=== PATIENT | female | born 1950 | race Caucasian/White ===

== ENCOUNTER 2016-09-19 11:47 | Emergency (ER) | payer BC, MEDICARE ==
[2016-09-19 13:08] VITALS: BP 144/72
--- NOTE | 2016-09-19 13:35 | UC ---
Upper Extremity HPI - HPI Summary HPI Summary: right shoulder pain after a fall last pm at home. States she got dizzy from feeling ill. Did not hit her head. No LOC. No neck pain. States she used a lidocaine patch and took tramadol prior to coming, that she takes for chronic low back pain. States she has had a fusion of C6-T2. - History of Current Complaint Chief Complaint: UCUpperExtremity Stated Complaint: SHOULDER INJURY Time Seen by Provider: 09/19/16 13:35 Hx Obtained From: Patient Hx Last Menstrual Period: n/a Onset/Duration: Sudden Onset, Lasting Hours, Still Present Severity Initially: Moderate Severity Currently: Moderate Pain Intensity: 9 Pain Scale Used: 0-10 Numeric Location Of Pain: Is Discrete @ - right shoulder, clavicle, scapula Character: Sharp Aggravating Factor(s): Movement Alleviating Factor(s): Nothing Associated Signs And Symptoms: Positive: Negative. Negative: Bruising, Numbness /Tingling Related History: Dominant Hand Right - Risk Factors Non-Orthopedic Risk Factor: Negative DVT Risk Factors: Negative Septic Arthritis Risk Factor: Negative - Allergies/Home Medications Allergies/Adverse Reactions: Allergies Allergy/AdvReac Type Severity Reaction Status Date / Time Morphine Allergy Rash Verified 09/19/16 13:01 Propoxyphene Allergy Tachycardia Verified 09/19/16 13:01 [From Darvocet-N] Hydrocodone AdvReac See Comment Verified 09/19/16 13:01 Rosiglitazone [From Avandia] AdvReac Diarrhea Verified 09/19/16 13:01 PMH/Surg Hx/FS Hx/Imm Hx Previously Healthy: No - osteoporosis Endocrine History Of: Reports: Diabetes Denies: Thyroid Disease Cardiovascular History Of: Denies: Cardiac Disorders, Hypertension Respiratory History Of: Denies: COPD, Asthma GI/ History Of: Denies: Ulcer - Surgical History Surgical History: Yes Surgery Procedure, Year, and Place: b/l knee replacements 1 each, hysterectomy, spinal fusion x 4, left ankle; gastric bypass 2011,. C-2 to T-2 fusion--2016, left shoulder sx--2016. - Family History Known Family History: Positive: Hypertension - Social History Alcohol Use: None Substance Use Type: None Smoking Status (MU): Former Smoker Type: Cigarettes Amount Used/How Often: 1 PPD Length of Time of Smoking/Using Tobacco: On and Off 40 Years Have You Smoked in the Last Year: No When Did the Patient Quit Smoking/Using Tobacco: ~2002 - Immunization History Most Recent Influenza Vaccination: 2016 Review of Systems Constitutional: Negative Skin: Negative Eyes: Negative ENT: Negative Respiratory: Negative Cardiovascular: Negative Gastrointestinal: Negative Genitourinary: Negative Motor: Negative Neurovascular: Negative Musculoskeletal: Arthralgia Neurological: Negative Psychological: Negative All Other Systems Reviewed And Are Negative: Yes Physical Exam Triage Information Reviewed: Yes Appearance: Well-Appearing, Pain Distress, Thin Vital Signs: Initial Vital Signs Temp 98 F 09/19/16 13:03 Pulse 87 09/19/16 13:03 Resp 20 09/19/16 13:03 BP 144/72 09/19/16 13:03 Pulse Ox 100 09/19/16 13:03 Vital Signs Reviewed: Yes Eyes: Positive: Conjunctiva Clear ENT: Positive: Normal ENT inspection Dental Exam: Normal Neck: Positive: Supple, Nontender Respiratory: Positive: Chest non-tender, Lungs clear, Normal breath sounds, No respiratory distress Cardiovascular: Positive: RRR, No Murmur, Pulses Normal, Brisk Capillary Refill Musculoskeletal: Positive: Strength Intact, ROM Limited @ - right shoulder, pain on palpation right interscapular area, upper thoracic spine. Axillary nerve intact. Tender AC joint Neurological: Positive: Alert, Muscle Tone Normal Psychological Exam: Normal Skin Exam: Normal Upper Extremity Course/Dx - Course Course Of Treatment: xrays thoracic spine, scapula and right shoulder all neg for fx - Differential Dx/Diagnosis Provider Diagnoses: right shoulder strain s/p fall. osteopenia Discharge - Discharge Plan Condition: Stable Disposition: HOME Patient Education Materials: Shoulder Sprain (ED) Referrals: Jena Jama MD [Primary Care Provider] -
--- NOTE | 2016-09-19 14:09 | RAD ---
Indication: Right shoulder injury. 3 views of the right shoulder demonstrates AC joint arthritis. Degenerative changes of the right glenohumeral joint is noted. No fracture is identified. IMPRESSION: AC JOINT ARTHRITIS WITH NO EVIDENCE OF FRACTURE.
--- NOTE | 2016-09-19 14:12 | RAD ---
HISTORY: Fall, pain, shoulder pain COMPARISONS: None VIEWS: 2, frontal internal rotation and outlet views of the right shoulder FINDINGS: BONE DENSITY: Normal. BONES: There is no displaced fracture. JOINTS: There is no arthropathy. ALIGNMENT: There is no dislocation. SOFT TISSUES: Unremarkable. OTHER FINDINGS: None. IMPRESSION: NO ACUTE OSSEOUS INJURY. IF SYMPTOMS PERSIST, RECOMMEND REPEAT IMAGING.
--- NOTE | 2016-09-19 14:26 | RAD ---
Indication: Back pain after fall. 2 views of the thoracic spine are reviewed. There is normal vertebral body height and alignment. Diffuse osteopenia is noted. Disc spaces all well-preserved. IMPRESSION: Diffuse osteopenia without fracture of the thoracic spine.
== END 2016-09-19 15:26 | disposition home or self-care (01) ==
LOC: UCCORT 11:47
DX: S46.911A Strain of unspecified muscle, fascia and tendon at shoulder and upper arm level, right arm, initial encounter (principal); M85.88 Other specified disorders of bone density and structure, other site; M19.011 Primary osteoarthritis, right shoulder; Z96.653 Presence of artificial knee joint, bilateral; Z98.84 Bariatric surgery status; Z87.891 Personal history of nicotine dependence; W19.XXXA Unspecified fall, initial encounter; Y92.9 Unspecified place or not applicable; Z88.5 Allergy status to narcotic agent; Z88.8 Allergy status to other drugs, medicaments and biological substances
CPT/HCPCS: 72070; 99212; G0463

== ENCOUNTER 2017-04-14 11:23 | Emergency (ER) | payer BC, MEDICARE ==
[2017-04-14 12:32] VITALS: BP 122/56
--- NOTE | 2017-04-14 13:02 | UC ---
Respiratory Complaint HPI - HPI Summary HPI Summary: pt c/o of "burning in chest" with respirations. pt reports she had a URI last week that now has "traveled to her lungs" . Pt c/o SOB with ambulation. - History of Current Complaint Chief Complaint: UCGeneralIllness Stated Complaint: CHEST CONGESTION, COUGH Time Seen by Provider: 04/14/17 12:14 Hx Obtained From: Patient Hx Last Menstrual Period: n/a ?: No Onset/Duration: Gradual Onset, Lasting Days Severity Initially: Mild Severity Currently: Mild Character: Cough: Nonproductive Aggravating Factors: Deep Breaths Alleviating Factors: Spontaneous Resolution Associated Signs And Symptoms: Positive: Dyspnea, URI - Risk Factors Pulmonary Embolism Risk Factors: Negative Cardiac Risk Factors: Negative Pseudomonas Risk Factors: Negative Tuberculosis Risk Factors: Negative - Allergies/Home Medications Allergies/Adverse Reactions: Allergies Allergy/AdvReac Type Severity Reaction Status Date / Time Morphine Allergy Rash Verified 09/19/16 13:01 Propoxyphene Allergy Tachycardia Verified 09/19/16 13:01 [From Darvocet-N] Hydrocodone AdvReac See Comment Verified 09/19/16 13:01 Rosiglitazone [From Avandia] AdvReac Diarrhea Verified 09/19/16 13:01 Home Medications: Home Medications Albuterol Sulfate [Proventil Hfa] 108 mcg IN Q4HR PRN 04/14/17 [History Confirmed 04/14/17] PMH/Surg Hx/FS Hx/Imm Hx Previously Healthy: Yes - Surgical History Surgical History: Yes Surgery Procedure, Year, and Place: b/l knee replacements 1 each, hysterectomy, spinal fusion x 4, left ankle; gastric bypass 2011,. C-2 to T-2 fusion--2016, left shoulder sx--2016., lumbar fusion this past december - Family History Known Family History: Positive: Hypertension - Social History Occupation: Retired Lives: With Family Alcohol Use: None Substance Use Type: None Smoking Status (MU): Former Smoker Type: Cigarettes Amount Used/How Often: 1 PPD Length of Time of Smoking/Using Tobacco: On and Off 40 Years Have You Smoked in the Last Year: No When Did the Patient Quit Smoking/Using Tobacco: ~2002 - Immunization History Most Recent Influenza Vaccination: 2016 Review of Systems Constitutional: Negative Skin: Negative Eyes: Negative ENT: Negative Respiratory: Shortness Of Breath - with ambulation Cardiovascular: Negative Gastrointestinal: Negative Genitourinary: Negative Motor: Negative Neurovascular: Negative Musculoskeletal: Negative Neurological: Negative Psychological: Negative All Other Systems Reviewed And Are Negative: Yes Physical Exam Triage Information Reviewed: Yes Appearance: Well-Appearing Vital Signs: Initial Vital Signs Temp 97.7 F 04/14/17 12:26 Pulse 89 04/14/17 12:26 Resp 16 04/14/17 12:26 BP 122/56 04/14/17 12:26 Pulse Ox 99 04/14/17 12:26 Vital Signs Reviewed: Yes Eye Exam: Normal ENT Exam: Normal Dental Exam: Normal Neck exam: Normal Respiratory Exam: Normal Cardiovascular Exam: Normal Musculoskeletal Exam: Normal Neurological Exam: Normal Psychological Exam: Normal Skin Exam: Normal UC Diagnostic Evaluation - Laboratory O2 Sat by Pulse Oximetry: 99 Respiratory Course/Dx - Differential Dx/Diagnosis Differential Diagnosis/HQI/PQRI: Bronchitis, Other - post viral cough Provider Diagnoses: post viral cough Discharge - Discharge Plan Condition: Stable Disposition: HOME Prescriptions: methylPREDNISolone TAB* [Medrol TAB*] 4 - 8 mg PO .SEE CELESTE #1 celeste Patient Education Materials: Dyspnea (ED) Referrals: Jena Jama MD [Primary Care Provider] - If Needed (Please follow up with your PCP or return to clinic as needed. ) Additional Instructions: Please follow up with your PCP or return to clinic. Please use the albuterol inhaler you were prescribed by another provider as directed.
== END 2017-04-14 12:50 | disposition home or self-care (01) ==
LOC: UCCORT 11:23
DX: R05 Cough (principal)
CPT/HCPCS: 99211; G0463

== ENCOUNTER 2017-05-14 18:40 | Emergency (ER) | payer BC, MEDICARE ==
[2017-05-14 20:05] VITALS: BP 131/55
--- NOTE | 2017-05-14 20:11 | UC ---
Abdominal Pain Female HPI - HPI Summary HPI Summary: Patient presents to the with CC - History of Current Complaint Hx Last Menstrual Period: n/a <Maeve Khan - Last Filed: 05/14/17 20:11> - HPI Summary HPI Summary: Dysuria and diarrhea for about 5 days. she did have nausea at one point but this has resolved. no fever. she has had dysuria but no fever or back pain. no other contacts have diarrhea. no recent hospitalization or recent antibiotics. - History of Current Complaint Hx Obtained From: Patient, Family/Floral Manager ?: No Onset/Duration: Gradual Onset, Lasting Days Timing: Constant Severity Initially: Moderate Severity Currently: Moderate Location: Diffuse Radiates: No Character: Aching, Cramping Aggravating Factor(s): Other: - urination. Alleviating Factor(s): Nothing Associated Signs and Symptoms: Positive: Urinary Symptoms, Diarrhea - she denies vaginal burning or itching or swelling., Other:. Negative: Diaphoresis, Fever, Cough, Chest Pain, Back Pain, Constipation, Blood in Stool, Decreased Appetite, Vaginal Bleeding <Sumanth Lundberg - Last Filed: 05/14/17 20:35> - History of Current Complaint Chief Complaint: UCGU Stated Complaint: UTI Time Seen by Provider: 05/14/17 19:50 Allergies/Adverse Reactions: Allergies Allergy/AdvReac Type Severity Reaction Status Date / Time Morphine Allergy Rash Verified 05/14/17 19:57 Propoxyphene Allergy Tachycardia Verified 05/14/17 19:57 [From Darvocet-N] Hydrocodone AdvReac See Comment Verified 05/14/17 19:57 Rosiglitazone [From Avandia] AdvReac Diarrhea Verified 05/14/17 19:57 Home Medications: Home Medications Cyanocobalamin [B-12 Compliance Injection] 05/14/17 [History] oxyCODONE/Acetamin (NF) [Percocet (NF)] 1 tab PO Q4H 05/14/17 [ History Confirmed 05/14/17] PMH/Surg Hx/FS Hx/Imm Hx - Surgical History Surgical History: Yes Surgery Procedure, Year, and Place: b/l knee replacements 1 each, hysterectomy, spinal fusion x 4, left ankle; gastric bypass 2011,. C-2 to T-2 fusion--2016, left shoulder sx--2016., lumbar fusion this past december - Family History Known Family History: Positive: Hypertension - Social History Alcohol Use: None Substance Use Type: None Smoking Status (MU): Former Smoker Type: Cigarettes Amount Used/How Often: 1 PPD Length of Time of Smoking/Using Tobacco: On and Off 40 Years Have You Smoked in the Last Year: No When Did the Patient Quit Smoking/Using Tobacco: ~2002 - Immunization History Most Recent Influenza Vaccination: 2015 <Maeve Khan - Last Filed: 05/14/17 20:11> Previously Healthy: No - back pain - Social History Lives: With Family <Sumanth Lundberg - Last Filed: 05/14/17 20:35> Review of Systems Gastrointestinal: Diarrhea Genitourinary: Dysuria All Other Systems Reviewed And Are Negative: Yes <Sumanth Lundberg - Last Filed: 05/14/17 20:35> Physical Exam Vital Signs: Initial Vital Signs Temp 98.4 F 05/14/17 19:59 Pulse 98 05/14/17 19:59 Resp 18 05/14/17 19:59 BP 131/55 05/14/17 19:59 Pulse Ox 98 05/14/17 19:59 <Maeve Khan - Last Filed: 05/14/17 20:11> Triage Information Reviewed: Yes Appearance: Well-Appearing, No Pain Distress, Well-Nourished Vital Signs: Initial Vital Signs Temp 98.4 F 05/14/17 19:59 Pulse 98 05/14/17 19:59 Resp 18 05/14/17 19:59 BP 131/55 05/14/17 19:59 Pulse Ox 98 05/14/17 19:59 Vital Signs Reviewed: Yes Eyes: Positive: Conjunctiva Clear ENT: Positive: Normal ENT inspection, Pharynx normal Neck: Positive: Supple, Nontender, No Lymphadenopathy Respiratory Exam: Normal Respiratory: Positive: Chest non-tender, Lungs clear, Normal breath sounds, No respiratory distress, No accessory muscle use. Negative: Respiratory distress Cardiovascular: Positive: RRR, No Murmur, Pulses Normal, Brisk Capillary Refill Abdominal Exam: Other - diffuse tenderness without guarding. Abdomen Description: Negative: CVA Tenderness (R), CVA Tenderness (L) Musculoskeletal: Positive: Strength Intact, ROM Intact, No Edema Neurological: Positive: Alert, Muscle Tone Normal. Negative: Fatigued Psychological: Positive: Normal Response To Family, Age Appropriate Behavior Skin: Negative: rashes <Sumanth Lundberg - Last Filed: 05/14/17 20:35> Abd Pain Female Course/Dx - Course Course Of Treatment: we discussed supportive care and she will return for any worsening symptoms of any kind or if diarrhea persists. - Differential Dx/Diagnosis Provider Diagnoses: diarrhea. uti <Sumanth Lundberg - Last Filed: 05/14/17 20:35> Discharge <Maeve Khan - Last Filed: 05/14/17 20:11> <Sumanth Lundberg - Last Filed: 05/14/17 20:35> - Discharge Plan Condition: Good Disposition: HOME Prescriptions: Loperamide CAP* [Imodium CAP*] 2 mg PO Q4H PRN #20 cap PRN Reason: Diarrhea Nitrofurantoin Monohyd Macro [Macrobid] 100 mg PO BID #20 cap Patient Education Materials: Acute Diarrhea (ED), Loperamide (By mouth), Urinary Tract Infection in Women (ED) Referrals: Jena Jama MD [Primary Care Provider] - If Needed Additional Instructions: Please come back if symptoms persist including diarrhea.
[2017-05-14] MEDS ORDERED: Nitrofurantoin Macrocrystals* 50 MG CAP PO ONE (20:37)
== END 2017-05-14 20:41 | disposition home or self-care (01) ==
LOC: UCCORT 18:40
DX: N39.0 Urinary tract infection, site not specified (principal); Z88.5 Allergy status to narcotic agent; Z88.6 Allergy status to analgesic agent; Z88.8 Allergy status to other drugs, medicaments and biological substances; Z98.1 Arthrodesis status; Z96.653 Presence of artificial knee joint, bilateral; Z98.84 Bariatric surgery status; Z87.891 Personal history of nicotine dependence
CPT/HCPCS: 81003; 87086; 99212; A9270-GY; G0463

== ENCOUNTER 2017-05-23 16:17 | Emergency (ER) | payer BC, MEDICARE ==
[2017-05-23 17:10] VITALS: BP 138/65
--- NOTE | 2017-05-23 17:14 | UC ---
Complaint Female HPI - HPI Summary HPI Summary: SEEN 05/14/17, DIAGNOSED WITH UTI PRESCRIBED MACROBID. FELT BETTER FOR A COUPL EOF DAYS BUT NOW CHILLS, FREQUENCY, URGENCY, AND LOW BACK PAIN HAVE WORSENED. - History Of Current Complaint Chief Complaint: UCGU Stated Complaint: UTI - NOT IMPROVING Time Seen by Provider: 05/23/17 16:47 Hx Obtained From: Patient Hx Last Menstrual Period: n/a Onset/Duration: Sudden Onset, Lasting Days, Still Present Timing: Intermittent, Lasting Days Severity Initially: Mild Severity Currently: Moderate Character: Dull, Burning, Cramping Aggravating Factor(s): Urination Associated Signs And Symptoms: Positive: Back Pain. Negative: Vaginal Bleeding/ Discharge, Vaginal Discharge, Nausea, Vomiting(# Of Episodes =) - Risk Factors Ectopic Risk Factor: Negative Ovarian Torsion Risk Factor: Negative - Allergies/Home Medications Allergies/Adverse Reactions: Allergies Allergy/AdvReac Type Severity Reaction Status Date / Time Morphine Allergy Rash Verified 05/23/17 16:34 Propoxyphene Allergy Tachycardia Verified 05/23/17 16:34 [From Darvocet-N] Hydrocodone AdvReac See Comment Verified 05/23/17 16:34 Rosiglitazone [From Avandia] AdvReac Diarrhea Verified 05/23/17 16:34 PMH/Surg Hx/FS Hx/Imm Hx Previously Healthy: Yes - Surgical History Surgical History: Yes Surgery Procedure, Year, and Place: b/l knee replacements 1 each, hysterectomy, spinal fusion x 4, left ankle; gastric bypass 2011,. C-2 to T-2 fusion--2015, left shoulder sx--2016., lumbar fusion this past december - Family History Known Family History: Positive: Hypertension - Social History Occupation: Employed Full-time Lives: With Family Alcohol Use: None Substance Use Type: None Smoking Status (MU): Former Smoker Type: Cigarettes Amount Used/How Often: 1 PPD Length of Time of Smoking/Using Tobacco: On and Off 40 Years Have You Smoked in the Last Year: No When Did the Patient Quit Smoking/Using Tobacco: ~2002 - Immunization History Most Recent Influenza Vaccination: 2016 Review of Systems Constitutional: Chills Skin: Negative Eyes: Negative ENT: Negative Respiratory: Negative Cardiovascular: Negative Gastrointestinal: Negative Genitourinary: Dysuria Motor: Negative Neurovascular: Negative Musculoskeletal: Negative Neurological: Negative Psychological: Negative Is Patient Immunocompromised?: No All Other Systems Reviewed And Are Negative: Yes Physical Exam Triage Information Reviewed: Yes Appearance: Well-Appearing, No Pain Distress, Well-Nourished Vital Signs: Initial Vital Signs Temp 98.8 F 05/23/17 16:35 Pulse 88 05/23/17 16:35 Resp 18 05/23/17 16:35 BP 138/65 05/23/17 16:35 Pulse Ox 100 05/23/17 16:35 Vital Signs Reviewed: Yes Eye Exam: Normal ENT Exam: Normal ENT: Positive: Normal ENT inspection Dental Exam: Normal Neck exam: Normal Neck: Positive: Supple, Nontender, No Lymphadenopathy Respiratory Exam: Normal Respiratory: Positive: Chest non-tender, Lungs clear, Normal breath sounds, No respiratory distress Cardiovascular Exam: Normal Cardiovascular: Positive: RRR, No Murmur, Pulses Normal Abdomen Description: Positive: Nontender, No Organomegaly, CVA Tenderness (R) Musculoskeletal Exam: Normal Neurological Exam: Normal Psychological Exam: Normal Skin Exam: Normal Complaint Female Dx - Differential Dx/Diagnosis Differential Diagnosis/HQI/PQRI: Cervicitis, Renal Colic, Urinary Tract Infection, Other - PYELO Provider Diagnoses: URINARY TRACT INFECTION Discharge - Discharge Plan Condition: Stable Disposition: HOME Prescriptions: Phenazopyridine TAB* [Pyridium 100 mg TAB*] 100 mg PO TID PRN #15 tab PRN Reason: Pain Sulfamethox/Trimethoprim DS* [Bactrim DS 800/160 TAB*] 1 tab PO BID #20 tab Patient Education Materials: Urinary Tract Infection in Women (ED) Referrals: Jena Jama MD [Primary Care Provider] -
--- NOTE | 2017-05-26 07:57 | ED ---
Progress - Progress Note Progress Note: ucx (-). stop abx.if worse er/pcp. Course/Dx - Diagnoses Provider Diagnoses: Dysuria
== END 2017-05-23 17:12 | disposition home or self-care (01) ==
LOC: UCCORT 16:17
DX: N39.0 Urinary tract infection, site not specified (principal); Z96.653 Presence of artificial knee joint, bilateral; Z90.710 Acquired absence of both cervix and uterus; Z98.84 Bariatric surgery status; Z88.5 Allergy status to narcotic agent; Z87.891 Personal history of nicotine dependence
CPT/HCPCS: 81003; 87086; 99212; G0463

== ENCOUNTER 2017-09-27 09:19 | Emergency (ER) | payer BC, MEDICARE ==
[2017-09-27 10:25] VITALS: BP 119/65
--- NOTE | 2017-09-27 10:48 | UC ---
Respiratory Complaint HPI - HPI Summary HPI Summary: cough x 1 day non-productive, + fever, chills, body aches nasal congestion, no sore throat - History of Current Complaint Chief Complaint: UCGeneralIllness Stated Complaint: COUGH,ACHY,CHEST AUDRA Time Seen by Provider: 09/27/17 10:32 Hx Obtained From: Patient Hx Last Menstrual Period: n/a Onset/Duration: Gradual Onset, Lasting Days - 1, Still Present Severity Initially: Moderate Severity Currently: Moderate Pain Intensity: 7 Character: Cough: Nonproductive Aggravating Factors: Exertion, Deep Breaths Alleviating Factors: Nothing Associated Signs And Symptoms: Positive: Fever, Chills, URI, Nasal Congestion. Negative: Dyspnea, Wheezing, Hemoptysis, Dizziness, Calf Pain, Calf Swelling - Allergies/Home Medications Allergies/Adverse Reactions: Allergies Allergy/AdvReac Type Severity Reaction Status Date / Time acetaminophen Allergy Diarrhea Verified 09/27/17 10:21 [From Darvocet-N] hydrocodone Allergy Rash Verified 09/27/17 10:21 morphine Allergy Rash Verified 09/27/17 10:21 propoxyphene Allergy Diarrhea Verified 09/27/17 10:21 [From Darvocet-N] PMH/Surg Hx/FS Hx/Imm Hx Endocrine History: Diabetes - Surgical History Surgical History: Yes Surgery Procedure, Year, and Place: b/l knee replacements 1 each, hysterectomy, spinal fusion x 4, left ankle; gastric bypass 2011,. C-2 to T-2 fusion--2016, left shoulder sx--2016., lumbar fusion this past december - Family History Known Family History: Positive: Hypertension - Social History Alcohol Use: None Substance Use Type: None Smoking Status (MU): Former Smoker Type: Cigarettes Amount Used/How Often: 1 PPD Length of Time of Smoking/Using Tobacco: On and Off 40 Years Have You Smoked in the Last Year: No When Did the Patient Quit Smoking/Using Tobacco: ~2002 - Immunization History Most Recent Influenza Vaccination: 2016 Review of Systems Constitutional: Fever, Chills, Fatigue Skin: Negative Eyes: Negative ENT: Nasal Discharge Respiratory: Cough Cardiovascular: Negative Gastrointestinal: Negative Genitourinary: Negative Is Patient Immunocompromised?: No All Other Systems Reviewed And Are Negative: Yes Physical Exam Triage Information Reviewed: Yes Appearance: Well-Appearing, No Pain Distress, Well-Nourished Vital Signs: Initial Vital Signs Temp 100.6 F 09/27/17 10:19 Pulse 96 09/27/17 10:19 Resp 18 09/27/17 10:19 BP 119/65 09/27/17 10:19 Pulse Ox 97 09/27/17 10:19 Vital Signs Reviewed: Yes Eyes: Positive: Conjunctiva Clear ENT: Positive: Normal ENT inspection, Hearing grossly normal, Pharynx normal, Nasal drainage. Negative: TM bulging, TM dull, TM red Neck: Positive: Supple, Nontender, No Lymphadenopathy Respiratory: Positive: Chest non-tender, Lungs clear, Normal breath sounds Cardiovascular: Positive: RRR, No Murmur, Pulses Normal Abdominal Exam: Normal Abdomen Description: Positive: Nontender, Soft. Negative: CVA Tenderness (R), CVA Tenderness (L), Distended, Guarding Bowel Sounds: Positive: Present Musculoskeletal Exam: Normal Musculoskeletal: Positive: Strength Intact, ROM Intact, No Edema Neurological: Positive: Alert UC Diagnostic Evaluation - Laboratory O2 Sat by Pulse Oximetry: 97 Diagnostic Studies Comment: negative rapid Flu Respiratory Course/Dx - Differential Dx/Diagnosis Provider Diagnoses: uri Discharge - Discharge Plan Condition: Stable Disposition: HOME Patient Education Materials: Upper Respiratory Infection (DC) Referrals: Jena Jama MD [Primary Care Provider] - If Needed
== END 2017-09-27 10:54 | disposition home or self-care (01) ==
LOC: UCCORT 09:19
DX: J06.9 Acute upper respiratory infection, unspecified (principal); E11.9 Type 2 diabetes mellitus without complications; Z87.891 Personal history of nicotine dependence
CPT/HCPCS: 87502; 99211; G0463

== ENCOUNTER 2017-11-24 15:29 | Emergency (ER) | payer BC, MEDICARE ==
[2017-11-24 16:09] VITALS: BP 113/74
--- NOTE | 2017-11-24 16:35 | UC ---
Truncal Trauma HPI - HPI Summary HPI Summary: Pt presents with c/o right side rib pain after falling 2 weeks ago and then fell two days ago. Both falls were from standing height and denies hemoptysis or SOB. Also, c/o right side neck pain and stiffness. Has history of neck and back surgery. - History Of Current Complaint Hx Obtained From: Patient Hx Last Menstrual Period: n/a ?: No Onset/Duration: Sudden Onset, Lasting Weeks Onset Of Pain: Immediate Severity Initially: Moderate Severity Currently: Moderate Pain Intensity: 8 Mechanism Of Injury: Fall From A Standing Position Aggravating Factor(s): Movement, Deep Breathing, Cough Alleviating factor(s): Rest Associated Signs And Symptoms: Positive: Negative <Josefa Edwards NP - Last Filed: 11/24/17 17:12> <Rocio Jama - Last Filed: 11/24/17 18:44> - History Of Current Complaint Chief Complaint: UCChestPain Stated Complaint: (R) SIDE RIB PAIN S/P FALL - Allergies/Home Medications Allergies/Adverse Reactions: Allergies Allergy/AdvReac Type Severity Reaction Status Date / Time morphine Allergy Rash Verified 11/24/17 16:00 propoxyphene Allergy Diarrhea Verified 11/24/17 16:00 [From Jimmy-N] Home Medications: Home Medications Acetaminophen [Tylenol Arthritis] 2 tab PO TID PRN 11/24/17 [History Confirmed 11/24/17] PMH/Surg Hx/FS Hx/Imm Hx Previously Healthy: Yes - Surgical History Surgical History: Yes Surgery Procedure, Year, and Place: b/l knee replacements 1 each, hysterectomy, spinal fusion x 5, left ankle; gastric bypass 2011,. C-2 to T-2 fusion--2016, left shoulder sx--2016., lumbar fusion this past december - Family History Known Family History: Positive: Hypertension - Social History Occupation: Retired Lives: With Family Alcohol Use: None Substance Use Type: None Smoking Status (MU): Former Smoker Type: Cigarettes Amount Used/How Often: 1 PPD Length of Time of Smoking/Using Tobacco: On and Off 40 Years Have You Smoked in the Last Year: No When Did the Patient Quit Smoking/Using Tobacco: ~2002 - Immunization History Most Recent Influenza Vaccination: 2015 <Josefa Edwards NP - Last Filed: 11/24/17 17:12> Review of Systems Constitutional: Negative Skin: Negative Eyes: Negative ENT: Negative Respiratory: Negative Cardiovascular: Negative Gastrointestinal: Negative Genitourinary: Negative Motor: Decreased ROM - neck, rib cage Neurovascular: Negative Musculoskeletal: Arthralgia - ribs 7-10 Neurological: Negative Psychological: Negative Is Patient Immunocompromised?: No All Other Systems Reviewed And Are Negative: Yes <Josefa Edwards NP Last Filed: 11/24/17 17:12> Physical Exam Triage Information Reviewed: Yes Appearance: Pain Distress Vital Signs: Initial Vital Signs Temp 98.2 F 11/24/17 16:04 Pulse 89 11/24/17 16:04 Resp 16 11/24/17 16:04 BP 113/74 11/24/17 16:04 Pulse Ox 97 11/24/17 16:04 Vital Signs Reviewed: Yes Eye Exam: Normal ENT Exam: Normal Neck exam: Other - neck stiffnes, decreased ROM Respiratory Exam: Normal Cardiovascular Exam: Normal Musculoskeletal Exam: Other Musculoskeletal: Positive: ROM Limited @ - neck,, Other: - trigger point tenderness with palpable "knot" right medial upper trapezious Neurological Exam: Normal Psychological Exam: Normal Skin Exam: Normal <Josefa Edwards NP Last Filed: 11/24/17 17:12> Vital Signs: Initial Vital Signs Temp 98.2 F 11/24/17 16:04 Pulse 89 11/24/17 16:04 Resp 16 11/24/17 16:04 BP 113/74 11/24/17 16:04 Pulse Ox 97 11/24/17 16:04 <Rocio Jama - Last Filed: 11/24/17 18:44> Diagnostics - Radiology No standard instances Radiology Interpretation Completed By: Radiologist - FINDINGS: There is a nondisplaced fracture of the right lateral seventh rib which is unchanged from the prior study. There is also a nondisplaced fracture of the right lateral eighth rib which appears new possibly representing an acute fracture. The heart is moderately enlarged and unchanged from the prior exam. The lungs are hyperinflated and clear. No pleural effusion or pneumothorax is seen. IMPRESSION: 1. NONDISPLACED FRACTURE OF THE RIGHT LATERAL EIGHTH RIB NEW FROM THE PRIOR STUDY. 2. CARDIOMEGALY, UNCHANGED. <Josefa Edwards NP - Last Filed: 11/24/17 17:12> Truncal Trauma Course/Dx - Course Course Of Treatment: FINDINGS: There is a nondisplaced fracture of the right lateral seventh rib which is. unchanged from the prior study. There is also a nondisplaced fracture of the right lateral. eighth rib which appears new possibly representing an acute fracture. The heart is moderately enlarged and unchanged from the prior exam. The lungs are. hyperinflated and clear. No pleural effusion or pneumothorax is seen. IMPRESSION: 1. NONDISPLACED FRACTURE OF THE RIGHT LATERAL EIGHTH RIB NEW FROM THE PRIOR STUDY. 2. CARDIOMEGALY, UNCHANGED. - Differential Dx/Diagnosis Differential Diagnosis/HQI/PQRI: Rib Fracture, Other - trigger point Provider Diagnoses: Rib fracture 8th right right side. trigger point tenderness right upper trapezious <Josefa Edwards NP - Last Filed: 11/24/17 17:12> Discharge - Sign-Out/Discharge Documenting (check all that apply): Discharge - Billing Disposition and Condition Condition: STABLE Disposition: HOME <Josefa Edwards NP - Last Filed: 11/24/17 17:12> - Billing Disposition and Condition Condition: STABLE Disposition: HOME <Rocio Jama - Last Filed: 11/24/17 18:44> - Discharge Plan Condition: Stable Disposition: HOME Patient Education Materials: Rib Fracture (ED), Trigger Point Pain (ED) Referrals: Jena Jama MD [Primary Care Provider] - If Needed Attestation Statement User Type: Provider - I was available for consult. This patient was seen by the SILVIO. The patient was not presented to, seen by, or examined by me. -Michael <Rocio Jama - Last Filed: 11/24/17 18:44>
--- NOTE | 2017-11-24 17:01 | RAD ---
INDICATION: Right rib injury. COMPARISON: Comparison is made with a prior chest x-ray study from May 20, 2016. TECHNIQUE: 4 views of the right ribs and dual-energy PA views of the chest were obtained. FINDINGS: There is a nondisplaced fracture of the right lateral seventh rib which is unchanged from the prior study. There is also a nondisplaced fracture of the right lateral eighth rib which appears new possibly representing an acute fracture. The heart is moderately enlarged and unchanged from the prior exam. The lungs are hyperinflated and clear. No pleural effusion or pneumothorax is seen. IMPRESSION: 1. NONDISPLACED FRACTURE OF THE RIGHT LATERAL EIGHTH RIB NEW FROM THE PRIOR STUDY. 2. CARDIOMEGALY, UNCHANGED.
== END 2017-11-24 17:18 | disposition home or self-care (01) ==
LOC: UCCORT 15:29
DX: S22.31XA Fracture of one rib, right side, initial encounter for closed fracture (principal); W18.30XA Fall on same level, unspecified, initial encounter; Y93.9 Activity, unspecified; Y92.9 Unspecified place or not applicable; M54.2 Cervicalgia; M43.6 Torticollis; I51.7 Cardiomegaly; Z96.653 Presence of artificial knee joint, bilateral; Z88.5 Allergy status to narcotic agent; Z87.891 Personal history of nicotine dependence
CPT/HCPCS: 99211; G0463

== ENCOUNTER 2017-12-22 14:26 | Emergency (ER) | payer BC, MEDICARE ==
[2017-12-22 15:00] VITALS: BP 131/70
--- NOTE | 2017-12-22 15:11 | UC ---
Skin Complaint HPI - History of Current Complaint Chief Complaint: UCSkin Time Seen by Provider: 12/22/17 15:01 Stated Complaint: FACIAL SKIN COMPLAINT Hx Obtained From: Patient Hx Last Menstrual Period: n/a Skin Exposure Onset/Duration: Days Ago Onset Severity: Mild Current Severity: Mild Pain Intensity: 0 Pain Scale Used: 0-10 Numeric Location: Face Aggravating Factor(s): Nothing Alleviating Factor(s): Nothing - Allergy/Home Medications Allergies/Adverse Reactions: Allergies Allergy/AdvReac Type Severity Reaction Status Date / Time morphine Allergy Rash Verified 12/22/17 15:00 sulfamethoxazole Allergy Rash Verified 12/22/17 15:22 [From Bactrim] trimethoprim [From Bactrim] Allergy Rash Verified 12/22/17 15:22 propoxyphene AdvReac Diarrhea Verified 12/22/17 15:00 [From Darvocet-N] Review of Systems Skin: Other All Other Systems Reviewed And Are Negative: Yes PMH/Surg Hx/FS Hx/Imm Hx Previously Healthy: Yes - Surgical History Surgical History: Yes Surgery Procedure, Year, and Place: b/l knee replacements 1 each, hysterectomy, spinal fusion x 5, left ankle; gastric bypass 2011,. C-2 to T-2 fusion--2015, left shoulder sx--2015., lumbar fusion this past december - Family History Known Family History: Positive: Hypertension - Social History Occupation: Employed Full-time Alcohol Use: None Substance Use Type: None Smoking Status (MU): Former Smoker Type: Cigarettes Amount Used/How Often: 1 PPD Length of Time of Smoking/Using Tobacco: On and Off 40 Years Have You Smoked in the Last Year: No When Did the Patient Quit Smoking/Using Tobacco: ~2002 - Immunization History Most Recent Influenza Vaccination: 2016 Physical Exam Triage Information Reviewed: Yes Appearance: Well-Appearing, No Pain Distress, Well-Nourished Vital Signs: Initial Vital Signs Temp 98.2 F 12/22/17 14:55 Pulse 91 12/22/17 14:55 Resp 16 12/22/17 14:55 BP 131/70 12/22/17 14:55 Pulse Ox 100 12/22/17 14:55 Vital Signs Reviewed: Yes Eye Exam: Normal Eyes: Positive: Conjunctiva Clear ENT: Positive: Hearing grossly normal, TMs normal Dental Exam: Normal Neck exam: Normal Neck: Positive: Supple, Nontender, No Lymphadenopathy Respiratory Exam: Normal Respiratory: Positive: Chest non-tender, Normal breath sounds, No respiratory distress, No accessory muscle use Cardiovascular Exam: Normal Cardiovascular: Positive: RRR, No Murmur Musculoskeletal Exam: Normal - right upper, lateral cheek pt with 2x2 cm erythema, indurated no fluctuance. small scab. No drainage. mild warmth, well demarcated no red streaking, no ear involvement. Neurological Exam: Normal Neurological: Positive: Alert Psychological Exam: Normal Skin: Positive: Other Course/Dx - Course Course Of Treatment: Pt with area of inflammed follicle and surrounding cellulitis on right upper cheek. No drainage no fluctance - no abscess to I + D. 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 Will start Doxy. warm soaks. return precautions. pt to monitor erythema. return precuations. pt in agreement [facility] plan - Diagnoses Provider Diagnoses: facial cellulitis Discharge - Sign-Out/Discharge Documenting (check all that apply): Discharge/Admit/Transfer - Discharge Plan Condition: Stable Disposition: HOME Prescriptions: DOXYcycline CAP(*) [DOXYcycline 100MG CAP(*)] 100 mg PO BID #20 cap Patient Education Materials: Cellulitis (ED) Referrals: Jena Jama MD [Primary Care Provider] - Additional Instructions: - Apply warm, wet soaks to your wound for 15 minutes, 2-3 times a day - Take antibiotics as prescribed until gone - Erythema may increase for the first 24 hours - if it increases after24 hours, you develop a fever, increased pain, red streaking or any other concerns you should go to the emergency department for additional treatment. - Billing Disposition and Condition Condition: STABLE Disposition: HOME
== END 2017-12-22 15:26 | disposition home or self-care (01) ==
LOC: UCCORT 14:26
DX: L03.211 Cellulitis of face (principal); Z88.1 Allergy status to other antibiotic agents; Z88.5 Allergy status to narcotic agent; Z87.891 Personal history of nicotine dependence
CPT/HCPCS: 99212; G0463

== ENCOUNTER 2019-01-11 18:37 | Emergency (ER) | payer BC, MEDICARE ==
[2019-01-11] MEDS ORDERED: Ibuprofen TAB* 600 MG PO ONE (19:26)
[2019-01-11 21:24] VITALS: BP 144/72
--- NOTE | 2019-01-11 21:37 | UC ---
General HPI - HPI Summary HPI Summary: pt presents for evaluation of her left rib pain. she states she fell last week. it was a mechanical fall. she states that today the pain got worse. she drove herself here to the . She takes tylenol on occasion for pain. she denies any further falls or injuries. - History of Current Complaint Chief Complaint: UCTrauma Stated Complaint: RIB PAIN S/P FALL 1 WEEK AGO Hx Obtained From: Patient Hx Last Menstrual Period: n/a Onset/Duration: Sudden Onset Onset Severity: Moderate Current Severity: Moderate Pain Intensity: 8 - Allergy/Home Medications Allergies/Adverse Reactions: Allergies Allergy/AdvReac Type Severity Reaction Status Date / Time morphine Allergy Rash Verified 01/11/19 19:12 sulfamethoxazole Allergy Rash Verified 01/11/19 19:12 [From Bactrim] trimethoprim [From Bactrim] Allergy Rash Verified 01/11/19 19:12 propoxyphene AdvReac Diarrhea Verified 01/11/19 19:12 [From Darvocet-N] PMH/Surg Hx/FS Hx/Imm Hx Previously Healthy: Yes - Surgical History Surgical History: Yes Surgery Procedure, Year, and Place: b/l knee replacements 1 each, hysterectomy, spinal fusion x 5, left ankle; gastric bypass 2011,. C-2 to T-2 fusion--2015, left shoulder sx--2015., lumbar fusion this past december. Right knee replacement after shattered bone injury. Repair of fx'd right femur - Family History Known Family History: Positive: Hypertension - Social History Alcohol Use: None Substance Use Type: None Smoking Status (MU): Former Smoker Type: Cigarettes Amount Used/How Often: 1 PPD Length of Time of Smoking/Using Tobacco: On and Off 40 Years Have You Smoked in the Last Year: No When Did the Patient Quit Smoking/Using Tobacco: ~2002 - Immunization History Most Recent Influenza Vaccination: 2016 Review of Systems All Other Systems Reviewed And Are Negative: No Constitutional: Positive: Negative Skin: Positive: Negative Eyes: Positive: Negative ENT: Positive: Negative Respiratory: Positive: Shortness Of Breath - when she gets a sharp pain to her left rib cage area Gastrointestinal: Positive: Negative Genitourinary: Negative: Dysuria, Hematuria, Frequency Motor: Negative: Decreased ROM, Weakness Neurovascular: Positive: Negative Musculoskeletal: Positive: Other: - chest wall pain Neurological: Negative: Headache Psychological: Negative: Negative Is Patient Immunocompromised?: No Physical Exam Triage Information Reviewed: Yes Appearance: Well-Appearing, No Pain Distress, Well-Nourished Vital Signs: Initial Vital Signs Temp 98.2 F 01/11/19 19:16 Pulse 97 01/11/19 19:16 Resp 16 01/11/19 19:16 BP 155/55 01/11/19 19:16 Pulse Ox 100 01/11/19 19:16 Vital Signs Reviewed: Yes Eyes: Positive: Conjunctiva Clear ENT: Positive: Hearing grossly normal, Pharynx normal Neck exam: Normal Neck: Positive: Supple, Nontender Respiratory Exam: Normal Respiratory: Positive: Chest non-tender, Lungs clear, Normal breath sounds, No respiratory distress Cardiovascular: Positive: RRR, No Murmur, Pulses Normal Abdomen Description: Positive: Nontender, Soft Bowel Sounds: Positive: Present Musculoskeletal Exam: Other - pain to palpation to left chest wall extending to axilla Neurological: Positive: Alert Psychological Exam: Normal Skin Exam: Normal Course/Dx - Course Course Of Treatment: chest xray and rib viewed to left area showed no obvious frx, however, with pt' s significant pain and her age, I was concerned that she may have a frx or further injuries. I was concerned that pt may have more extensive injuries than 1 rib frx. I encouraged pt to go to the ED for further evaluation and a CT of chest and abdomen to evaluate her spleen. pt deferred. she states she is so tired and wants to go home. we discussed risks and benefits. she still deferred. at that point, I sent her xrays to [facility]. no obvious frx noted on chest xray. pt discharged. I strongly encouraged her to go to her pcp tomorrow or to go to the ED tomorrow if she does not feel better. - Diagnoses Provider Diagnosis: Left-sided chest wall pain Discharge - Sign-Out/Discharge Documenting (check all that apply): Patient Departure All imaging exams completed and their final reports reviewed: Yes - Discharge Plan Condition: Stable Disposition: HOME Patient Education Materials: Chest Pain (ED), Chest Wall Pain (ED) Referrals: Jena Jama MD [Primary Care Provider] - Additional Instructions: Please follow up with your primary care physician tomorrow. It is important to take tylenol or motrin for pain. If you are worse or not better, PLEASE go to the emergency department. - Billing Disposition and Condition Condition: STABLE Disposition: Home
== END 2019-01-11 21:41 | disposition home or self-care (01) ==
LOC: UCCORT 18:37
DX: R07.89 Other chest pain (principal); I51.7 Cardiomegaly; Z87.891 Personal history of nicotine dependence
CPT/HCPCS: 71046; 81003; 99212; A9270-GY; G0463

== ENCOUNTER 2021-07-18 10:29 | Observation (INO) ==
[2021-07-18] MEDS ORDERED: Lactated Ringers 1000 ml BAG 1,000 ML IV ONE (10:36)
[2021-07-18] MEDS ORDERED: Magnesium Sulfate 2 gm BAG 2 GM/50 ML BAG IVPB ONE (10:41)
[2021-07-18 11:01] LABS: ABS Eosinophils 0.1 10^3/ul (0-0.6); ABS Lymphocytes 0.6 10^3/ul (1.0-4.8); ABS Monocytes 0.3 10^3/ul (0-0.8); ABS Neutrophils 2.4 10^3/ul (1.5-7.7); Eosinophil % 3.9 %; Hematocrit 33 % (35-47); Hemoglobin 10.8 g/dL (12.0-16.0); Lymphocyte % 18.1 %; Mean Corpuscular HGB Conc 33 g/dL (31-36); Mean Corpuscular Hemoglobin 30 pg (27-31); Mean Corpuscular Volume 92 fL (80-97); Mean Platelet Volume 7.5 fL (7.4-10.4); Platelet Count 162 10^3/uL (150-450); Red Blood Count 3.58 10^6 /uL (3.70-4.87); Red Cell Distribution Width 16 % (10-15); White Blood Count 3.4 10^3/uL (3.5-10.8)
[2021-07-18 11:07] LABS: INR 1.13 (0.86-1.15)
[2021-07-18 11:14] LABS: ALT 8 U/L (7-52); AST 22 U/L (13-39); Albumin/Globulin Ratio 1.4 (1-3); Alkaline Phosphatase 60 U/L (35-149); Anion Gap 4 mmol/L (2-11); Blood Urea Nitrogen 14 mg/dL (6-24); CO2 Carbon Dioxide 26 mmol/L (22-32); Calcium 7.7 mg/dL (8.6-10.3); Chloride 110 mmol/L (101-111); Globulin 2.2 g/dL (2-4); Glucose 176 mg/dL (70-100); Magnesium 1.7 mg/dL (1.9-2.7); Potassium 4.2 mmol/L (3.5-5.0); Sodium 140 mmol/L (135-145); Total Protein 5.2 g/dL (6.4-8.9); Troponin I 0.02 ng/mL (<0.03); eGFR CKD-EPI 89.7 (>60)
[2021-07-18 13:08] LABS: C Reactive Protein < 1.00 mg/L (<8.01)
[2021-07-18] MEDS ORDERED: NS 0.9% 1000 ml BAG 1,000 ML IV SCH (13:45)
[2021-07-18] MEDS ORDERED: Lidocaine PATCH 5% PATCH TRANSDERM PRN (13:47)
[2021-07-18 15:38] LABS: Rapid COVID-19 Molecular Undetected (Undetected)
[2021-07-18 16:26] LABS: Urine Appearance Clear; Urine Bilirubin Negative (Negative); Urine Blood Negative (Negative); Urine Color Yellow; Urine Glucose Negative (Negative); Urine Ketones Negative (Negative); Urine Nitrite Negative (Negative); Urine Protein Negative (Negative); Urine Specific Gravity 1.008 (1.002-1.030); Urine Urobilinogen Negative (Negative)
[2021-07-18] MEDS: Enoxaparin 40 MG/0.4 ML SYR SUBCUT SCH (16:28)
[2021-07-18] MEDS: Morphine ER 30 mg TAB ** extended release PO SCH (20:39)
[2021-07-18] MEDS ORDERED: oxyCODONE/Acetamin 10/325(NF) TAB PO SCH (21:00)
[2021-07-19 06:24] LABS: ABS Eosinophils 0.2 10^3/ul (0-0.6); ABS Lymphocytes 0.9 10^3/ul (1.0-4.8); ABS Monocytes 0.3 10^3/ul (0-0.8); Eosinophil % 8.2 %; Hematocrit 34 % (35-47); Lymphocyte % 36.9 %; Mean Corpuscular HGB Conc 33 g/dL (31-36); Mean Corpuscular Hemoglobin 30 pg (27-31); Mean Corpuscular Volume 91 fL (80-97); Mean Platelet Volume 7.6 fL (7.4-10.4); Nucleated Red Blood Cells % 0.1; Platelet Count 167 10^3/uL (150-450); Red Blood Count 3.67 10^6 /uL (3.70-4.87); Red Cell Distribution Width 16 % (10-15); White Blood Count 2.3 10^3/uL (3.5-10.8)
[2021-07-19 06:46] LABS: Calcium 7.5 mg/dL (8.6-10.3); Magnesium 2.1 mg/dL (1.9-2.7); Potassium 3.9 mmol/L (3.5-5.0); eGFR CKD-EPI 66.6 (>60)
[2021-07-19] MEDS: oxyCODONE/Acetamin 5/325 mg TAB PO SCH ×2 (06:55→11:00)
[2021-07-19] MEDS: Lidocaine Patch REMOVE NOTE PATCH OFF SCH ×2 (06:56→20:46)
[2021-07-19] MEDS: Morphine ER 30 mg TAB ** extended release PO SCH ×2 (08:58→21:59)
[2021-07-19 09:05] LABS: Calcium (PTH Intact) 7.5 mg/dL (8.6-10.3)
[2021-07-19] MEDS: NF: Exemestane 25 mg TAB (NF) PO SCH (10:00)
[2021-07-19] MEDS: Enoxaparin 40 MG/0.4 ML SYR SUBCUT SCH (12:46)
[2021-07-20] MEDS: oxyCODONE/Acetamin 5/325 mg TAB PO SCH ×2 (07:15→08:05)
[2021-07-20] MEDS: NF: Exemestane 25 mg TAB (NF) PO SCH (08:05)
[2021-07-20] MEDS: Morphine ER 30 mg TAB ** extended release PO SCH (08:05)
[2021-07-20 12:55] VITALS: BP 131/64
[2021-07-20 21:15] LABS: Anaplasma phagocytophilum Negative (Negative); B. miyamotoi PCR, B Negative (Negative); Babesia divergens/MO-1 Negative (Negative); Babesia ducani Negative (Negative); Ehrlichia chaffeensis Negative (Negative); Ehrlichia ewingii/canis Negative (Negative); Ehrlichia muris eauclairensis Negative (Negative)
== END 2021-07-20 13:35 | disposition home or self-care (01) ==
LOC: EDHOLD 10:29 → ED 10:29 → SUATTDRO 13:53 → MEDTELE 14:29
PROVIDERS: ADMIT Internal Medicine; ATTEND Hospitalist

== ENCOUNTER 2021-08-07 09:33 | Observation (INO) ==
[2021-08-07 10:45] LABS: ABS Eosinophils 0.2 10^3/ul (0-0.6); ABS Lymphocytes 0.6 10^3/ul (1.0-4.8); ABS Monocytes 0.3 10^3/ul (0-0.8); ABS Neutrophils 2.1 10^3/ul (1.5-7.7); Eosinophil % 6.3 %; Hematocrit 38 % (35-47); Hemoglobin 12.7 g/dL (12.0-16.0); Lymphocyte % 19.9 %; Mean Corpuscular HGB Conc 33 g/dL (31-36); Mean Corpuscular Hemoglobin 30 pg (27-31); Mean Corpuscular Volume 90 fL (80-97); Mean Platelet Volume 7.4 fL (7.4-10.4); Nucleated Red Blood Cells % 0.1; Platelet Count 212 10^3/uL (150-450); Red Blood Count 4.23 10^6 /uL (3.70-4.87); Red Cell Distribution Width 14 % (10-15); White Blood Count 3.2 10^3/uL (3.5-10.8)
[2021-08-07 10:57] LABS: ALT 12 U/L (7-52); AST 24 U/L (13-39); Albumin 3.5 g/dL (3.2-5.2); Albumin/Globulin Ratio 1.3 (1-3); Alkaline Phosphatase 75 U/L (35-149); Anion Gap 6 mmol/L (2-11); Blood Urea Nitrogen 10 mg/dL (6-24); CO2 Carbon Dioxide 25 mmol/L (22-32); Calcium 8.3 mg/dL (8.6-10.3); Chloride 109 mmol/L (101-111); Globulin 2.6 g/dL (2-4); Glucose 92 mg/dL (70-100); Magnesium 1.7 mg/dL (1.9-2.7); Sodium 140 mmol/L (135-145); Total Protein 6.1 g/dL (6.4-8.9); eGFR CKD-EPI 86.8 (>60)
[2021-08-07] MEDS ORDERED: Magnesium Sulfate 2 gm BAG 2 GM/50 ML BAG IVPB ONE (11:00)
[2021-08-07 11:12] LABS: Troponin I 0.03 ng/mL (<0.03)
[2021-08-07 11:14] LABS: TSH Ultra Thyroid Stim Horm 3.52 mcIU/mL (0.34-5.60)
[2021-08-07] MEDS ORDERED: Lactated Ringers 1000 ml BAG 1,000 ML IV ONE (11:35)
[2021-08-07 13:42] LABS: Troponin I 0.04 ng/mL (<0.03)
[2021-08-07] MEDS ORDERED: Lactated Ringers 1000 ml BAG 1,000 ML IV SCH (14:00)
[2021-08-07] MEDS ORDERED: Enoxaparin 40 MG/0.4 ML SYR SUBCUT SCH (17:00)
[2021-08-07 17:06] LABS: C Reactive Protein 1.53 mg/L (<8.01)
[2021-08-07] MEDS ORDERED: Lidocaine PATCH 5% PATCH TRANSDERM PRN (17:44)
[2021-08-07] MEDS ORDERED: Morphine ER 30 mg TAB ** extended release PO PRN (17:44)
[2021-08-07] MEDS ORDERED: Naloxone Nasal Spray 4 MG/0.1 ML NASAL.SPR INTRANASAL PRN (17:44)
[2021-08-07] MEDS ORDERED: cefTRIAXone 1 gm/50 mL NS BAG 1 GM/50 ML BAG IVPB SCH (20:00)
[2021-08-07 20:45] LABS: Anion Gap 6 mmol/L (2-11); Blood Urea Nitrogen 10 mg/dL (6-24); CO2 Carbon Dioxide 26 mmol/L (22-32); Calcium 8.2 mg/dL (8.6-10.3); Chloride 107 mmol/L (101-111); Glucose 156 mg/dL (70-100); Potassium 3.9 mmol/L (3.5-5.0); Sodium 139 mmol/L (135-145); eGFR CKD-EPI 69.3 (>60)
[2021-08-07 20:51] LABS: Troponin I 0.03 ng/mL (<0.03)
[2021-08-07] MEDS ORDERED: Lidocaine Patch REMOVE NOTE PATCH OFF PRN (21:00)
[2021-08-08 06:42] LABS: ABS Eosinophils 0.2 10^3/ul (0-0.6); ABS Lymphocytes 0.7 10^3/ul (1.0-4.8); ABS Monocytes 0.4 10^3/ul (0-0.8); ABS Neutrophils 1.3 10^3/ul (1.5-7.7); Eosinophil % 7.5 %; Hematocrit 36 % (35-47); Hemoglobin 11.8 g/dL (12.0-16.0); Lymphocyte % 26.8 %; Mean Corpuscular HGB Conc 33 g/dL (31-36); Mean Corpuscular Hemoglobin 30 pg (27-31); Mean Corpuscular Volume 92 fL (80-97); Mean Platelet Volume 7.9 fL (7.4-10.4); Nucleated Red Blood Cells % 0.1; Platelet Count 184 10^3/uL (150-450); Red Blood Count 3.91 10^6 /uL (3.70-4.87); Red Cell Distribution Width 14 % (10-15); White Blood Count 2.6 10^3/uL (3.5-10.8)
[2021-08-08 07:02] LABS: Calcium 8.1 mg/dL (8.6-10.3); Potassium 4.1 mmol/L (3.5-5.0); eGFR CKD-EPI 77.8 (>60)
[2021-08-08 10:01] LABS: Urine Appearance Clear; Urine Bilirubin Negative (Negative); Urine Blood Negative (Negative); Urine Color Yellow; Urine Glucose Negative (Negative); Urine Ketones Negative (Negative); Urine Nitrite Negative (Negative); Urine Protein Negative (Negative); Urine Specific Gravity 1.014 (1.002-1.030); Urine Urobilinogen Negative (Negative)
[2021-08-08 14:29] VITALS: BP 120/53
== END 2021-08-08 17:05 | disposition home or self-care (01) ==
LOC: ED 09:33 → EDHOLD 17:02 → SUATTDRO 17:02 → INTOOBSV 17:02 → MEDTELE 18:30
PROVIDERS: ADMIT Internal Medicine; ATTEND Internal Medicine

== ENCOUNTER 2021-09-12 15:20 | Observation (INO) ==
[2021-09-12 16:54] LABS: ABS Eosinophils 0.1 10^3/ul (0-0.6); ABS Monocytes 0.4 10^3/ul (0-0.8); ABS Neutrophils 2.8 10^3/ul (1.5-7.7); Eosinophil % 2.5 %; Hematocrit 35 % (35-47); Hemoglobin 11.7 g/dL (12.0-16.0); Mean Corpuscular HGB Conc 33 g/dL (31-36); Mean Corpuscular Hemoglobin 31 pg (27-31); Mean Corpuscular Volume 92 fL (80-97); Mean Platelet Volume 7.5 fL (7.4-10.4); Platelet Count 225 10^3/uL (150-450); Red Blood Count 3.85 10^6 /uL (3.70-4.87); Red Cell Distribution Width 15 % (10-15); White Blood Count 4.3 10^3/uL (3.5-10.8)
[2021-09-12 17:04] LABS: INR 1.04 (0.86-1.15)
[2021-09-12 17:12] LABS: Albumin 3.5 g/dL (3.2-5.2); Albumin/Globulin Ratio 1.1 (1-3); Calcium 8.7 mg/dL (8.6-10.3); Globulin 3.1 g/dL (2-4); Potassium 4.5 mmol/L (3.5-5.0); Total Bilirubin 0.5 mg/dL (0.2-1.0); Total Protein 6.6 g/dL (6.4-8.9); eGFR CKD-EPI 70.3 (>60)
[2021-09-12 17:13] LABS: Troponin I 0.01 ng/mL (<0.03)
[2021-09-12 17:41] LABS: Rapid COVID-19 Molecular Undetected (Undetected)
[2021-09-12] MEDS ORDERED: Iodixanol (CONTRAST) 320 MG/ML 100 ML SDV IV ONE (17:45)
[2021-09-12] MEDS ORDERED: Enoxaparin 40 MG/0.4 ML SYR SUBCUT SCH (21:00)
[2021-09-12] MEDS ORDERED: Naloxone Nasal Spray 4 MG/0.1 ML NASAL.SPR INTRANASAL PRN (22:29)
[2021-09-12] MEDS ORDERED: Morphine ER 30 mg TAB ** extended release PO PRN (22:29)
[2021-09-12] MEDS: oxyCODONE/Acetamin 5/325 mg TAB PO SCH (23:30)
[2021-09-13 06:27] LABS: Potassium 4.2 mmol/L (3.5-5.0); eGFR CKD-EPI 66.6 (>60)
[2021-09-13] MEDS: oxyCODONE/Acetamin 5/325 mg TAB PO SCH (07:58)
[2021-09-13] MEDS ORDERED: EXEMESTANE 25 MG PO SCH (09:00)
[2021-09-13] MEDS ORDERED: NS 0.9% 500 ml BAG 500 ML IV ONE (11:51)
[2021-09-13 14:44] VITALS: BP 126/51
== END 2021-09-13 18:10 | disposition home or self-care (01) ==
LOC: MEDTELE 15:20 → ED 15:20 → SUATTDRO 20:42
PROVIDERS: ADMIT Internal Medicine; ATTEND Internal Medicine